=== PATIENT | male | born 1965 | race Caucasian/White ===

== ENCOUNTER → 2018-03-26 14:05 | Outpatient (CLI) | payer SELFPAY ==
[2018-03-26 14:32] LABS: Basophils # 0.1 K/mm3 (0-0.2); Eosinophils # 0.3 K/mm3 (0.0-0.4); Eosinophils % 3.5 % (0.1-12.0); Hematocrit 37.4 % (42.0-52.0); Hemoglobin 12.4 g/dL (14.1-18.0); Lymphocytes # 2.8 K/mm3 (0.7-4.5); Mean Corpuscular HGB Conc 33.2 g/dL (31.8-35.4); Mean Corpuscular Volume 78.3 fl (80-94); Mean Platelet Volume 6.7 fl (7.4-10.4); Monocytes % 10.9 % (1.7-9.3); Neutrophils # 4.9 K/mm3 (1.8-7.8); Neutrophils % 53.6 % (37.0-80.0); Platelet Count 559 K/mm3 (142-424); Red Blood Count 4.78 M/mm3 (4.60-6.20); Red Cell Distribution Width 15.8 % (11.5-17.5); White Blood Count 9.1 K/mm3 (4.8-10.8)
[2018-03-26 15:32] LABS: Alanine Aminotransferase 39 U/L (12-78); Albumin Level 3.8 gm/dL (3.4-5.0); Albumin/Globulin Ratio 0.9 (1.1-1.8); Alkaline Phosphatase 107 U/L (46-116); Anion Gap 10.8 mEq/L (5-15); Aspartate Amino Transferase 21 U/L (15-37); Bilirubin,Total 0.3 mg/dL (0.2-1.0); Blood Urea Nitrogen 45 mg/dL (7-18); Calcium 8.4 mg/dL (8.5-10.1); Chloride 92 mmol/L (98-107); Creatinine,Serum 3.12 mg/dL (0.70-1.30); Estimated Glomerular Filt Rate 21 ml/min (>60); GFR (African American) 26 ML/MIN (>60); Globulin 4.2 gm/dl (1.3-3.2); Glucose 113 mg/dL (74-106); Potassium 3.8 mmoL/L (3.5-5.1); Sodium 140 mmol/L (136-145)
[2018-03-26 15:48] LABS: Carbon Dioxide 41 mmol/L (21.0-32.0)
[2018-03-28 19:03] LABS: Prealbumin 39 mg/dL (12-34)
== END ==
LOC: LAB.CARL 14:11 → LAB 14:13
PROVIDERS: PCP Internal Medicine; Visit Provider Surgery
DX: K50.90 Crohn's disease, unspecified, without complications (principal); Z93.2 Ileostomy status
CPT/HCPCS: 36415; 80053; 84134; 85025